=== PATIENT | female | born 1975 | race Two or more races ===

== ENCOUNTER 2017-07-07 17:40 | Emergency (ER) | payer OTHER ==
[~2017-07-07] VITALS: Ht 147.3 cm; Wt 57.0 kg
[2017-07-07 17:42] VITALS: BP 121/82
[2017-07-07] MEDS ORDERED: PROPARACAINE OPHTH 0.5%, 15ML RIGHTEYE ONE (18:30)
[2017-07-07] MEDS ORDERED: FLUORESCEIN OPHTHALMIC 1 MG STRIP RIGHTEYE ONE (18:30)
[2017-07-07] MEDS ORDERED: FLUORESCEIN OPHTHALMIC 1 MG STRIP ONE (18:33)
[2017-07-07] MEDS ORDERED: PROPARACAINE OPHTH 0.5%, 15ML ONE (18:33)
== END 2017-07-07 19:09 | disposition home or self-care (01) ==
LOC: ED 18:50
DX: H10.021 Other mucopurulent conjunctivitis, right eye (principal)
CPT/HCPCS: 99283